=== PATIENT | female | born 1980 | race Hispanic/Latino ===

== ENCOUNTER 2021-06-27 15:39 | Outpatient (CLI) | payer MEDICAID | END 2021-06-27 15:40 | disposition home or self-care (01) | LOC: CSHMAMMO 15:39 | PROVIDERS: ATTEND Nurse Practitioner Women's Health | DX: Z12.31 Encounter for screening mammogram for malignant neoplasm of breast (principal) | CPT/HCPCS: 77067 ==

== ENCOUNTER 2022-09-20 15:09 | Outpatient (CLI) | payer MEDICAID | END 2022-09-20 15:10 | disposition home or self-care (01) | LOC: CSHMAMMO 15:09 | PROVIDERS: ATTEND Nurse Practitioner Women's Health | DX: Z12.31 Encounter for screening mammogram for malignant neoplasm of breast (principal) | CPT/HCPCS: 77067 ==

== ENCOUNTER 2024-05-21 14:05 | Outpatient (CLI) | payer BC, OTHER | END 2024-05-21 14:06 | disposition home or self-care (01) | LOC: CSHMAMMO 14:05 | DX: N63.20 Unspecified lump in the left breast, unspecified quadrant (principal) | CPT/HCPCS: G0279 ==

== ENCOUNTER → 2024-06-16 | Outpatient (CLI) | payer BC, OTHER | LOC: CSHMRI 10:40 | PROVIDERS: ATTEND Neurological Surgery | DX: G93.0 Cerebral cysts (principal) | CPT/HCPCS: 70553 ==